=== PATIENT | female | born 1990 | race Caucasian/White ===

== ENCOUNTER 2024-07-23 08:23 | Emergency (ER) | payer MEDICAID, SELFPAY ==
[2024-07-23 08:31] VITALS: BP 131/83; PULSE 137; RESP 22; TEMP 36.3; O2SAT 98; BMI 23.2
--- NOTE | 2024-07-23 08:45 | ED.DENTAL ---
HPI - Dental/Oral General Date Seen: 07/23/24 Chief complaint: Dental/Oral/Mouth Injury/Pain Stated complaint: swollen left side face Time Seen by Provider: 07/23/24 08:36 Source: patient Mode of arrival: ambulatory Limitations: no limitations History of Present Illness HPI Narrative: Patient is a 33-year-old female presenting to the emergency department for dental pain at tooth 10. [place]z on her right now it has been hurting for the past 2 days. She states the feels like she has infection. Has had symptoms like this before and they typically give her antibiotics and she gets better. Has not noticed any difficulty swallowing or difficulty breathing. Has not noticed any swelling underneath her tongue. Has tried ibuprofen home with no improvement in pain. Denies any fevers or chills. No other concerns noted at this time Related Data Previous Rx's ?Medication ?Instructions ?Recorded amoxicillin 875 mg-potassium 1 tab PO BID 10 days #20 tabs 07/23/24 clavulanate 125 mg tablet Allergies Allergy/AdvReac Type Severity Reaction Status Date / Time No Known Drug Allergies Allergy Verified 07/23/24 08:28 Review of Systems Narrative: Pertinent systems reviewed and were negative unless stated in HPI Exam Narrative: Exam Narrative: Const: Well-nourished, Well-developed, in mild distress Eyes: PERRL, no conjunctival injection, and symmetrical lids HENT: Atraumatic external nose and ears. Moist mucous membranes. Dental: Very poor dentition with only a few teeth remaining. Multiple areas of broken and teeth with very large cavities. At tooth 10 there is an area of swelling just above what is left of the tooth. When I pressed on this area parent material came down around the base of the tooth that is still in her gums. MSK:Extremities w/o deformity, Normal Active ROM Skin: Warm, Dry. No rashes or lesions. Neuro: Normal Muscle tone, No focal neurological deficits. Psych: Awake, Alert, & Oriented x3. Appropriate mood and affect. Const: Vital Signs, click to edit/add: Vital Signs - 24 hr 07/23/24 08:31 Temperature 97.4 F L Pulse Rate [Pulse Oximeter] 137 H Respiratory Rate 22 Blood Pressure [Ri ght Upper Arm] 131/83 Pulse Oximetry 98 Oxygen Delivery Me thod Room Air Course Vital Signs Vital signs: Initial Vital Signs Temperature 97.4 F L 07/23/24 08:31 Temperature Source Temporal Artery Scan 07/23/24 08:31 Pulse Rate 137 H 07/23/24 08:31 Respiratory Rate 22 07/23/24 08:31 Blood Pressure 131/83 07/23/24 08:31 Blood Pressure Mean 99 07/23/24 08:31 Blood Pressure Position Sitting 07/23/24 08:31 Pulse Oximetry 98 07/23/24 08:31 Oxygen Delivery Method Room Air 07/23/24 08:31 Vital Signs Temperature 97.4 F L 07/23/24 08:31 Pulse Rate 137 H 07/23/24 08:31 Respiratory Rate 22 07/23/24 08:31 Blood Pressure 131/83 07/23/24 08:31 Pulse Oximetry 98 07/23/24 08:31 Oxygen Delivery Method Room Air 07/23/24 08:31 Temperature 97.4 F L 07/23/24 08:31 Pulse Rate 137 H 07/23/24 08:31 Respiratory Rate 22 07/23/24 08:31 Blood Pressure 131/83 07/23/24 08:31 Pulse Oximetry 98 07/23/24 08:31 Oxygen Delivery Method Room Air 07/23/24 08:31 MDM - Dental/Oral MDM Narrative Medical decision making narrative: Patient is a 33-year-old female presenting for dental pain. No signs of developing Ortiz angina or other severe oral infections. She does clearly have a dental abscess. Will start her on Augmentin. She is agreeable to this plan Discharge Plan Discharge Clinical Impression: Dental abscess Patient Disposition: Home, Self-Care Condition: Stable Instructions: Dental Abscess (ED) Additional Instructions: Please follow-up with a dentist as soon as he can. Do have extensive dental work that is needed and are going to be prone to repeat dental abscesses. If you are unable to see dentist due to insurance reasons you can look into trying to get set up with states dental insurance and there are dental providers that will see you in the area. Take the antibiotics as prescribed Prescriptions: New amoxicillin-pot clavulanate 875-125 mg tablet 1 tab PO BID 10 Days Qty: 20 0RF Stand Alone Forms: MyHealth Info Instructions
--- OUTSIDE RECORDS SUMMARY | 2024-07-23 09:11 | XMS_ITS | Clinical Summary ---
Author Organization [facility] Address [address] [place] [id number] Care Team Providers Care Search Marketing Coordinator Name Role Phone No Ref-Primary, Physician Primary Care Provider Allergies No known active allergies Medications No known medications Social History Tobacco Use Types Packs/Day Years Used Date Smoking Tobacco: Never Assessed Comments Unknown Sex and Gender Information Value Date Recorded Sex Assigned at Not on file Legal Sex Female 6:54 PM DIRECTOR TEEN POST Gender Identity Not on file Sexual Orientation Not on file Last Filed Vital Signs Vital Sign Reading Time Taken Comments Blood Pressure 131/89 02/26/2024 7:27 PM DIRECTOR TEEN POST Pulse 98 02/26/2024 7:27 PM DIRECTOR TEEN POST Temperature 36.8 C (98.3 F) 02/26/2024 7:27 PM DIRECTOR TEEN POST Respiratory Rate 18 02/26/2024 7:27 PM DIRECTOR TEEN POST Oxygen Saturation 98% 02/26/2024 7:27 PM DIRECTOR TEEN POST Inhaled Oxygen Concentration - - Weight 76.2 kg (168 lb) 02/26/2024 7:43 PM DIRECTOR TEEN POST Height 170.2 cm (5' 7) 02/26/2024 7:43 PM DIRECTOR TEEN POST Body Mass Index 26.31 02/26/2024 7:43 PM DIRECTOR TEEN POST Plan of Treatment Health Maintenance Due Date Last Done Comments ADVANCE CARE PLANNING 1988 ANNUAL REVIEW OF HM ORDERS 1988 DIABETES SCREENING 1988 YEARLY PREVENTIVE VISIT 09/29/1991 HIV SCREENING 09/29/2003 HEPATITIS C SCREENING 2006 HEPATITIS B VACCINE (1 of 3 - 19+ 3-dose series) 09/29/2007 PAP 2009 DTAP/TDAP/TD VACCINE (1 - Tdap) 2013 COVID-19 VACCINE (2023-2 5 season) 2023 PHQ-2 (once per calendar year) 2024 INFLUENZA VACCINE (Season Ended) 2024 ZOSTER VACCINE (1 of 2) 2038 HPV VACCINE Aged Out No longer eligi ble based on patient's age to complete this topic MENINGITIS VACCINE Aged Out No longer eligible based on patient's age to complete this topic PNEUMOCOCCAL VACCINE: PEDIAT RICS (0 to 5 YEARS) AND AT-RISK PATIENTS (6 to 49 YEARS) Aged Out No longer eligi ble based on patient's age to complete this topic [place] Care Teams Search Marketing Coordinator Relationship Specialty Start Date End Date No Ref-Primary, Physician PCP - General 02/26/24
--- OUTSIDE RECORDS SUMMARY | 2024-07-23 09:11 | XMS_ITS | Clinical Summary ---
Author [facility] Address [address] [place] [id number] Care Team Providers Care Tool Builder Name Role Phone Panda Gallagher PA-C Primary Care Provider Source Comments You are receiving this document as you are listed as the primary care provider,follow-up provider, or the patient has been referred to you for consultation.This is in compliance with the Medicare and[facility] EHR Incentive Program,which states Providers who transition their patient to another setting of careor provider of care or refers their patient to another provider of care shouldprovide summary care record for each transition of care or referral. Mobile Safe Case Allergies No known active allergies Medications * This document contains information received from the source organization and may not represent a complete record from that organization. Vit-Fe Fumarate-FA ( RX 1 OR) Active hydroCHLOROthia zide (ORETIC) 25 MG tablet TAKE 1 TABLET BY MOUTH DAILY FOR 7 DAYS. 7 Tablet Active Additional Information Patient not taking.Reported on 06/13/2021 Active Problems Problem Noted Date Diagnosed Date (normal spontaneous vaginal delivery) 01/19 GBS (group B Streptococcus c arrier), +RV culture, currently 07/05/2020 Overview (07/05/2020): 10-50K at first OB [ ] abx in labor Other specified depressive episodes 05/02/2017 SIENNA (generalized anxiety disorder) 10/09/2016 Major depressive disorder, single episode, moder ate 03/20/2016 Scoliosis 10/30/2013 Supervision of high-risk 09/04/2011 Resolved Problems Problem Noted Date Diagnosed Date Resolved Date Active labor 02/08/2012 02/09/2012 Partial previa 10/03/2011 02/09/2012 Overview (12/06/2011): Repeat US at 28 weeks. Resolved per US 11/21/2011 Normal , first 05/26/200808/25 Anemia 02/02/2008 01/19/2021 Overview (02/02/2008): Iron supplement Immunizations Immunization Administration Dates Next Due 4vHPV (Gardasil) 10/30/2013,02/08/2010, 0 DTP 09/04/1993, 2,04/30/1989,1988,1988 Flu Vac (3+ yrs) 02/08/2010 Flu Vac Preserv Free (3+yrs) 11/13/2011 Fluzone Qiv Multidose Vial 0 .25 (6-35 Mos) 12/23/2012 H1n1 Miv Sanofi 3+ Yr (Injected) 05/06/2009 HepB Ped/Adol (0-18 yrs) 10/23/2001,03/17/2001,1 03/05/2000 Influenza IIV4 (Quadrivalent ) 0.5mL (66733) 10/30/2013,12/23/2012 Influenza, Unspecified Formulation 04/01/2009 MMR 09/04/1993,05/19/1991,01/09/1990 Moderna Monovalent 12+ 10/26/2020,2020 OPV, Trivalent (Orimune or tOPV) 994,03/24/1991,01/29/1989,1988 Tdap 11/23/2020,06/24/2008 Family History Medical History Relation Name Comments Alcohol/Drug Abuse Father Other Maternal Grandmother endomet rial cancer Relation Name Status Comments Father Alive Mother Alive Brother Alive stepbrother Maternal Grandfather Maternal Grandmother Paternal Grandfather Alive Paternal Grandmother Alive Sister pt's twin Alive x2 Son Alive Social History Tobacco Use Types Packs/Day Years Used Date Smoking Tobacco: Every Day Cigarettes Smokeless Tobacco: Never Tobacco Cessation:Ready to Q uit: Yes Comments:1 cigarette a day Alcohol Use Standard Drinks/Week Comments No 0 (1 standard drink = 0.6 oz pur e alcohol) PHQ-2 Answer Date Recorded PHQ-2 Score 0 05/30/2021 Depression Answer Date Recor ded Last EPDS Total Score 2 04/05/2024 Last EPDS Self Harm Result Not on file 04/05 Comments No Sex and Gender Information Value Date Recorded Sex Assigned at Female 10/12/2021 10:51 PM CDT Legal Sex Female 7:10 AM CDT Gender Identity Female 10/12/2021 10:51 PM CDT Sexual Orientation Not on file Occupation Industry Job Start Date Job End Date stay at home mom Not on file Not on file Not on file Last Filed Vital Signs Vital Sign Reading Time Taken Comments Blood Pressure 126/88 06/13/2021 3:37 PM CDT Pulse 110 06/13/2021 3:37 PM CDT Temperature 36.6 C (97.9 F) 01/19/2021 11:35 AM COMPENSATION MANAGER Respiratory Rate 18 05/30/2021 11:1 3 AM CDT Oxygen Saturation 98% 01/19/2021 9:01 AM COMPENSATION MANAGER Inhaled Oxygen Concentration - - Weight 73.4 kg (161 lb 12.8 oz) 01/19/2021 6:46 AM COMPENSATION MANAGER Height 170.2 cm (5' 7) 01/17/2021 7:30 AM COMPENSATION MANAGER Body Mass Index 25.34 01/17/2021 7:30 AM COMPENSATION MANAGER Plan of Treatment Health Maintenance Due Date Last Done Comments Pneumococcal Vaccine (1 of 2 - PCV) 09/29/2007 Adult Preventive Visit 05/18/2012 05/18/2010, 2000 COVID-19 Vaccine ( season) 2023 10/26/2020, 2020 Influenza Vaccine (Season Ended) 2024 10/30/2013, 12/23/2012, 12/23/2012, Additional history exists Cervical Cancer Screening 07/01/20252020, 07/01/2020, 09/04/2011, Additional history exists DTaP/Tdap/Td Vaccine (8 - Tdap) 11/23/2030 11/23/2020, 06/24/2008, 09/04/1993, Additional history exists Zoster/Shingles Vaccine (1 of 2) 2038 IPV (Polio) Vaccine Completed 09/04/1993, 03/24/1991, 01/29/1989, Additional history exists HepB Vaccine Completed 10/23/2001, 02/26, 01/03/2001 HPV Vaccine Completed 10/30/2013, 01/25, 05/12/2009 HIV Screening (Preventive Services) Completed 07/01/2020, 09/04/2011, 01/29/2008 Hep C Screening (Preventive Services) Completed 07/01/2020 HepA Vaccine Aged Out No longer eligi ble based on patient's age to complete this topic Hib Vaccine Aged Out No longer eligi ble based on patient's age to complete this topic MCV4 Vaccine Aged Out No longer eligi ble based on patient's age to complete this topic Meningococcal B Vaccine Aged Out No l onger eligible based on patient's age to complete this topic Procedures Procedure Name Priority Date/Time Associated Diagnosis Comments HIV 1/2 AG/AB 4TH GEN Routine 07/01/2020 12:13 PM CDT Encounter for supervision of other normal in first trimester HEPATITIS C ANTIBODY, WITH REFLEX Routine 07/01/2020 12:13 PM CDT Encounter for supervision of other normal in first trimester CYTOLOGY (PAP) Routine 07/01/2020 11:57 AM CDT Screening for malignant neoplasm of cervix from Last 3 Months or Most Recently Relevant to Health Maintenance Results * HIV 1/2 Ag/Ab 4th Generation (07/01/2020 12:13 PM CDT) HIV 1/2 Antigen/Anti body (4th generation) Negative (Non Reactive) Negative (Non Reactive) 07/01/2020 3:40 PM CDT [facility] Comment:HIV-1 p24 Antigen an d HIV-1/HIV-2 Antibody not detected Blood Venipuncture / Unknown 07/01/2020 12:13 PM CDT 07/01/2020 12:13 PM CDT Radha Gonzalez MD LAB_1 Final Resul t Performing Organization Address [facility] de Phone Number [facility] [address] [place] [address], [facility] [phone] * Hepatitis C Antibody, with Reflex (07/01/2020 12:13 PM CDT) Hepatitis C Antibody Negative (Non Reactive) Negative (Non Reactive) 07/01/2020 3:34 PM CDT [facility] Comment:Antibodies to HCV no t detected. Does not exclude the possiblity of exposure to HCV. Blood Venipuncture / Unknown 07/01/2020 12:13 PM CDT 07/01/2020 12:13 PM CDT Radha Gonzalez MD LAB_1 Final Resul t Performing Organization Address [facility] de Phone Number [facility] [address] [place] [address], [facility] [phone] * PAP Test (07/01/2020 11:57 AM CDT) Case Report Pap Case: [id number] Authorizing Provider: Radha Gonzalez MD Collected: 07/01/2020 1157 Ordering Location: [facility] Received: 07/01/2020 1201 and Gynecology First Screen: Deana Ramirez CT (ASCP) Specimen: Pap Test, Routine, Cervix/Endocervix 07/11/2020 12:39 PM CDT [facility] Pap Specimen Adequacy Satisfactory for evaluation, endocervical/grimes sformation zone component present. 07/11/2020 12:39 PM T [facility] Pap Interpretation Negative for intraepithelial lesion or malignancy (NILM). 07/11/2020 12:39 PM T [facility] at 1239 CDT Pap Disclaimer The Pap test is a screening test designed to aid in the detection of cervical cancer and its precursor lesions. It is not a diagnostic procedure and should not be used as the sole means of detecting cervical cancer. Both false-positive and false-negative results may occur. 07/11/2020 12:[address] [facility] Gross Description The specimen is received in SurePath fixative and properly labeled. 1 Pap-stained SurePath slide is prepared. 07/11/2020 12:[address] [facility] Embedded Images 12:[address] [facility] Other Specimen Type ENTIRE ENDOCERVIX / Unknown 07/01/2020 11:57 AM CDT 07/01/2020 12:01 PM T Comment:LMP: Patient's last menstrual period was 04/09/2020 (exact date). us Radha Gonzalez MD LAB PATHOLOGY Final Resul t [address] [phone] from Last 3 Months or Most Recently Relevant to Health Maintenance Insurance [facility] Advance Directives * Full Code (Latest Code Status on File) Date Activated Date Inactivated Comments 01/18/2021 12:05 AM 01/19/2021 3:02 PM * Full Code Date Activated Date Inactivated Comments 01/17/2021 6:52 AM 01/18/2021 12:05 AM * Full Code Date Activated Date Inactivated Comments 02/08/2012 1:21 PM 02/10/2012 3:00 PM * Full Code Date Activated Date Inactivated Comments 02/08/2012 6:59 AM 02/08/2012 1:21 PM * Full Code Date Activated Date Inactivated Comments 06/21/2008 9:29 AM 06/24/2008 4:11 PM Care Teams Tool Builder Relationship Specialty Start Date End Date Panda Gallagher, PAAbdoulC [address] [place] [address] PCP - General Physician Command And Control Specialist 04/22/18
== END 2024-07-23 09:11 | disposition home or self-care (01) ==
LOC: ED 09:10
PROVIDERS: Emergency Provider Student in an Organized Health Care Education/Training Program
DX: K04.7 Periapical abscess without sinus (principal)
CPT/HCPCS: 99283